=== PATIENT | female | born 1965 | race Caucasian/White ===

== ENCOUNTER → 2018-09-01 08:01 | Outpatient (CLI) | payer MEDICARE ==
[2015-06-20 15:46] VITALS: BMI 23.8
[~2018-09-01 08:01] MED LIST: IBUPROFEN600 MG PO; MULTIPLE VITAMI1 TA1 PO; PERCOCET 5-3251 TAB PO
== END | disposition home or self-care (01) ==
LOC: D.US 08:01
PROVIDERS: ATTEND Family Medicine
DX: R10.10 Upper abdominal pain, unspecified (principal)

== ENCOUNTER → 2018-09-15 12:28 | Outpatient (CLI) | payer MEDICARE ==
[2015-06-20 15:46] VITALS: BMI 23.8
== END | disposition home or self-care (01) ==
LOC: D.NM 09:30
PROVIDERS: ATTEND Family Medicine
DX: R10.10 Upper abdominal pain, unspecified (principal)

== ENCOUNTER 2018-12-22 10:00 | Outpatient (CLI) | payer MEDICARE ==
[2015-06-20 15:46] VITALS: BMI 23.8
== END 2018-12-22 10:30 | disposition home or self-care (01) ==
LOC: D.MAMMO 10:00
PROVIDERS: ATTEND Family Medicine
DX: Z12.31 Encounter for screening mammogram for malignant neoplasm of breast (principal)

== ENCOUNTER → 2019-04-20 09:55 | Outpatient (CLI) | payer MEDICARE ==
[2015-06-20 15:46] VITALS: BMI 23.8
== END | disposition home or self-care (01) ==
LOC: D.MRI 09:55
PROVIDERS: ATTEND Clinical Nurse Specialist Family Health
DX: M54.12 Radiculopathy, cervical region (principal)

== ENCOUNTER → 2019-07-31 07:44 | Outpatient (CLI) | payer MEDICARE ==
[2015-06-20 15:46] VITALS: BMI 23.8
== END | disposition home or self-care (01) ==
LOC: D.MRI 07-29 11:00
PROVIDERS: ATTEND Family Medicine
DX: M54.42 Lumbago with sciatica, left side (principal)